=== PATIENT | male | born 1955 | race Caucasian/White ===

== ENCOUNTER 2017-08-13 11:17 | Emergency (ER) | payer OTHER ==
--- NOTE | 2017-08-13 11:49 | ER Document Report ---
ED Medical Screen (RME) - General Chief Complaint: Abdominal Pain Stated Complaint: STOMACH PAIN Time Seen by Provider: 08/13/17 11:46 Mode of Arrival: Ambulatory Information source: Patient TRAVEL OUTSIDE OF THE [place] IN LAST 30 DAYS: No - HPI Onset: Yesterday Onset/Duration: Gradual Quality of pain: Cramping, Dull Severity: Moderate Associated Symptoms: Abdominal pain, Nausea. denies: Chills, Diarrhea, Fever, Vomiting Exacerbated by: Denies Relieved by: Denies Similar symptoms previously: Yes - W/ BOWEL OBSTRUCTION Recently seen / treated by doctor: No - Related Data Allergies/Adverse Reactions: iodipamide sodium [Iodipamide Sodium] Allergy (Severe, Verified 08/13/17 11:17) Anaphylaxis contrast dye Allergy (Severe, Uncoded 07/15/13 06:47) hives, trouble breathing, rash Past Medical History - General Information source: Patient - Past Medical History Cardiac Medical History: Reports: Hx Hypercholesterolemia Denies: Hx Coronary Artery Disease, Hx Heart Attack, Hx Hypertension Pulmonary Medical History: Denies: Hx Asthma, Hx Bronchitis, Hx COPD, Hx Pneumonia Neurological Medical History: Reports: Hx Migraine. Denies: Hx Cerebrovascular Accident, Hx Seizures GI Medical History: Reports: Other - SIGMOID PERFORATION Musculoskeltal Medical History: Reports Hx Arthritis Past Surgical History: Reports: Hx Abdominal Surgery - Exploratory laparotomy x4 , Hx Appendectomy - Incidental appendectomy during the surgery for the perforated colon in 1982, Hx Bowel Surgery - Perforated colon, Hx Orthopedic Surgery - R foot/L arm, Hx Tonsillectomy - Immunizations Hx Diphtheria, Pertussis, Tetanus Vaccination: No - unsure Review of Systems - Review of Systems Constitutional: denies: Chills, Fever Gastrointestinal: See HPI Physical Exam - Vital signs Vitals: Temp Pulse Resp BP Pulse Ox 99.0 F 72 18 137/87 H 97 08/13/17 11:23 08/13/17 11:23 08/13/17 11:23 08/13/17 11:23 08/13/17 11:23 Interpretation: Normal. No: Tachycardic, Tachypneic, Febrile - HEENT Head: Normocephalic Mucous membranes: Normal - Respiratory Respiratory status: No respiratory distress Course - Vital Signs Vital signs: Temp Pulse Resp BP Pulse Ox 99.0 F 72 18 137/87 H 97 08/13/17 11:23 08/13/17 11:23 08/13/17 11:23 08/13/17 11:23 08/13/17 11:23
[2017-08-13] MEDS ORDERED: ONDANSETRON HCL INJ/PF 4 MG/2 ML SDV IV ONE ×2 (11:52→15:17)
[2017-08-13] MEDS ORDERED: NORMAL SALINE 1000 ML 1,000 ML IV ONE ×2 (11:52→14:40)
[2017-08-13] MEDS ORDERED: HYDROMORPHONE HCL INJ/PF 2 MG/ML AMPULE IV ONE ×2 (11:52→15:17)
[2017-08-13 12:37] LABS: ABSOLUTE BASOPHILS # (AUTO) 0.1 10^3/uL (0.0-0.2); ABSOLUTE EOSINOPHILS # (AUTO) 0.1 10^3/uL (0.0-0.6); ABSOLUTE LYMPHOCYTES (AUTO) 1.5 10^3/uL (0.5-4.7); ABSOLUTE MONOCYTES (AUTO) 0.8 10^3/uL (0.1-1.4); ABSOLUTE NEUT (AUTO) 8.1 10^3/uL (1.7-8.2); BASOPHILS % (AUTO) 0.5 % (0-2); EOSINOPHILS % (AUTO) 0.5 % (0-6); HEMATOCRIT 44.5 % (37.9-51.0); HEMOGLOBIN 15.2 g/dL (13.5-17.0); HGB HCT DIFFERENCE 1.1; LYMPHOCYTES % (AUTO) 14.6 % (13-45); MEAN CORPUSCULAR HGB CONC 34.2 g/dL (32.0-36.0); MEAN CORPUSCULAR VOLUME 91 fl (80-97); MONOCYTES % (AUTO) 7.8 % (3-13); RED BLOOD COUNT 4.91 10^6/uL (4.35-5.55); RED CELL DISTRIBUTION WIDTH 13.7 % (11.5-14.0); SEGMENTED NEUTROPHILS % (AUTO) 76.6 % (42-78); WHITE BLOOD COUNT 10.5 10^3/uL (4.0-10.5)
--- NOTE | 2017-08-13 13:39 | ER Document Report ---
ED GI/ - General Mode of Arrival: Ambulatory Information source: Patient TRAVEL OUTSIDE OF THE [place] IN LAST 30 DAYS: No <NATHAN WAGNER - Last Filed: 08/13/17 13:44> <GUNNAR FERNANDEZ - Last Filed: 08/13/17 15:47> - General Chief Complaint: Abdominal Pain Stated Complaint: STOMACH PAIN Time Seen by Provider: 08/13/17 11:46 Notes: Patient is a 61 year old male that presents to the emergency department today with complaints of abdominal pain beginning early this morning. Patient has a history of SBO in May of 2015. Patient states that his symptoms today are identical to the symptoms that he had in the past with his previous SBO. Patient states he is nauseated but denies any vomiting. (NATHAN WAGNER) - Related Data Allergies/Adverse Reactions: iodipamide sodium [Iodipamide Sodium] Allergy (Severe, Verified 08/13/17 11:55) Anaphylaxis contrast dye Allergy (Severe, Uncoded 08/13/17 11:55) hives, trouble breathing, rash Home Medications: Current Home Medications Clobetasol Propionate [Clobex] 1 applic TP 08/13/17 [History] Doxycycline Hyclate [Doxycycline Hyclate] 50 mg PO 08/13/17 [History] Past Medical History - General Information source: Patient - Social History Smoking Status: Former Smoker Cigarette use (# per day): No Chew tobacco use (# tins/day): No Frequency of alcohol use: None Drug Abuse: None Lives with: Family Family History: Reviewed & Not Pertinent Patient has suicidal ideation: No Patient has homicidal ideation: No - Past Medical History Cardiac Medical History: Reports: Hx Hypercholesterolemia Neurological Medical History: Reports: Hx Migraine GI Medical History: Reports: Other - SIGMOID PERFORATION Musculoskeltal Medical History: Reports Hx Arthritis Past Surgical History: Reports: Hx Abdominal Surgery - Exploratory laparotomy x4 , Hx Appendectomy - Incidental appendectomy during the surgery for the perforated colon in 1982, Hx Bowel Surgery - Perforated colon, Hx Orthopedic Surgery - R foot/L arm, Hx Tonsillectomy - Immunizations Hx Diphtheria, Pertussis, Tetanus Vaccination: No - unsure <NATHAN WAGNER - Last Filed: 08/13/17 13:44> Review of Systems - Review of Systems Constitutional: No symptoms reported EENT: No symptoms reported Cardiovascular: No symptoms reported Respiratory: No symptoms reported Gastrointestinal: See HPI, Abdominal pain, Nausea. denies: Vomiting Genitourinary: No symptoms reported Male Genitourinary: No symptoms reported Musculoskeletal: No symptoms reported Skin: No symptoms reported Hematologic/Lymphatic: No symptoms reported Neurological/Psychological: No symptoms reported -: Yes All other systems reviewed and negative <NATHAN WAGNER - Last Filed: 08/13/17 13:44> Physical Exam <NATHAN WAGNER - Last Filed: 08/13/17 13:44> <GUNNAR FERNANDEZ - Last Filed: 08/13/17 15:47> - Vital signs Vitals: Temp Pulse Resp BP Pulse Ox 99.0 F 72 18 137/87 H 97 08/13/17 11:23 08/13/17 11:23 08/13/17 11:23 08/13/17 11:23 08/13/17 11:23 - Notes Notes: Physical Exam: General: Alert, appears well. HEENT: Normocephalic. Atraumatic. PERRL. Extraocular movements intact. Oropharynx clear. Neck: Supple. Non-tender. Respiratory: No respiratory distress. Clear and equal breath sounds bilaterally. Cardiovascular: Regular rate and rhythm. Abdominal: Left lower abdomen has resonant sounds, dull throughout rest of abdomen. Left lower quadrant abdominal tenderness with palpation. No distension. Normal Bowel Sounds. Back: Non-tender. No deformity or step off. Extremities: Moves all four extremities. Upper extremities: Normal inspection. Normal ROM. Lower extremities: Normal inspection. No edema. Normal ROM. Neurological: Normal cognition. AAOx4. Normal speech. Psychological: Normal affect. Normal Mood. Skin: Warm. Dry. Normal color. (NATHAN WAGNER) Course - Laboratory Result Diagrams: 08/13/17 12:15 08/13/17 12:15 <NATHAN WAGNER - Last Filed: 08/13/17 13:44> - Laboratory Result Diagrams: 08/13/17 12:15 08/13/17 13:23 - Diagnostic Test Radiology reviewed: Image reviewed, Reports reviewed - Oral contrast a CT scan of the abdomen is unremarkable other than large amount of stool in the colon. <GUNNAR FERNANDEZ - Last Filed: 08/13/17 15:47> - Vital Signs Vital signs: Temp Pulse Resp BP Pulse Ox 99.0 F 72 18 137/87 H 97 08/13/17 11:23 08/13/17 11:23 08/13/17 11:23 08/13/17 11:23 08/13/17 11:23 - Laboratory Laboratory results interpreted by me: 08/13/17 13:23 Chloride 109 H Carbon Dioxide 20 L Total Protein 6.0 L Discharge <NATHAN WAGNER - Last Filed: 08/13/17 13:44> <GUNNAR FERNANDEZ - Last Filed: 08/13/17 15:47> - Discharge Clinical Impression: Nausea Abdominal pain Qualifiers: Abdominal location: generalized Qualified Code(s): R10.84 - Generalized abdominal pain Constipation Qualifiers: Constipation type: unspecified constipation type Qualified Code(s): K59.00 - Constipation, unspecified Condition: Stable Disposition: HOME, SELF-CARE Additional Instructions: Abdominal Pain There are many causes of abdominal pain. Pain can mean a serious problem requiring surgery (such as appendicitis). It can also be an innocent problem that goes away on its own (such as a viral infection). Often, time must pass to determine the cause of pain. The physician does not feel that hospitalization is necessary, at present. Things may change within the next 24 hours. Call the doctor or come back for re- examination if any problems occur, such as: (1) Pain that becomes more severe, steady, or becomes concentrated in one specific area. Also, pain that is more severe with movement or coughing. (2) Vomiting that persists or becomes more frequent. (3) Blood in the vomitus, urine, or bowel movements. Blood in the stool may have a tarry or black appearance. (4) Shaking chills or fever greater than 100 degrees F. (5) The abdomen becomes more distended or swollen. (6) Bowel movements cease. (7) Failure to improve as expected. Nausea or Vomiting, Nonspecific Vomiting (or nausea without vomiting) can be caused by many different problems. Of course, it can mean that something's wrong with the stomach, such as "stomach flu," ulcers, or inflammation. But it can also be a symptom of a problem that has nothing to do with the stomach or intestines. Vomiting is common with severe headaches, earaches, and tonsillitis. We see it with pneumonia or heart attacks. Drugs can cause nausea. Many abdominal problems cause vomiting; for example, gallstones, kidney stones, pancreatitis, and intestinal obstruction (blocked bowels). In most cases, curing the vomiting depends on fixing the problem that caused it. For temporary relief, we may use an anti-nausea medicine. For home use, we can prescribe suppositories, chewable pills, pills that dissolve in the mouth, or liquid anti-nausea drugs. If the vomiting seems to be caused by a problem in the stomach, acid-suppressing drugs may be prescribed as well. It's important to avoid dehydration. Sip clear liquids. Take increasing amounts of fluid over the first 24 hours. Then start small amounts of bland foods (such as dry toast, applesauce, mashed potato). Avoid aspirin, tobacco, and alcohol. Gradually resume your usual diet. If the vomiting worsens, if the problem that's making you vomit worsens, or if there's evidence of bleeding in the stomach (such as black, tarry stool, bloody or black vomit, or lightheadedness), you should return immediately. Call your doctor if you aren't improved in 24 to 36 hours. Constipation Constipation is a common problem. It is especially likely as you get older. Constipation is a common cause of abdominal pain, but sometimes causes no symptoms at all. Causes of constipation include certain medications, dehydration, diets, inactivity, and low-fiber intake. Rarely, it can be a symptom of underlying disease. The physician has evaluated you for this. Avoid constipation by eating a diet high in fiber, fruits, and vegetables. Drink plenty of liquids. Get regular exercise. If possible, avoid constipating medicines like narcotic pain medication. Some vitamin tablets can cause constipation. Stool softeners may be needed for difficult cases. An excellent stool softener is Konsyl which is available at [employer], and [facility]. Just add a teaspoon to a glass of pineapple or orange juice daily or twice a day if needed. Laxatives are useful for occasional constipation. You should use them only when necessary. Too-frequent use can make your bowels dependent on them. Some over the counter laxatives available without prescription are: Milk of Magnesia, 1-2 tablespoons twice a day Dulcolax, 5 mg pill or 10 mg suppository. Citrate of Magnesia, 4-5 ounces a day for a day or two For acute constipation, Fleet's Enemas and Dulcolax suppositories are helpful. Chronic, assisted use of laxatives or enemas is not a good idea. Your bowel may become dependant on them. You do not need to have a bowel movement every day. Many people do fine with a bowel movement every three or four days. You should call your doctor or return for re-evaluation if you pass blood in the stool, or if you develop fever or increasing abdominal pain. //////////////////////////////////////////////////////////////////////////////// //////////////////////////////////////////////////////////////////////////////// ////////////////// The CT scan of your abdomen was unremarkable other than a large fecal load in the colon. Take medication as prescribed for nausea. Drink 1 bottle of citrate of magnesia. Drink plenty of cool clear liquids throughout the day and evening. Take MiraLAX once daily. Follow-up with your doctor if not improving. RETURN TO THE EMERGENCY ROOM IF ANY NEW OR WORSENING SYMPTOMS. Prescriptions: Ondansetron [Zofran Odt 4 mg Tablet] 1 - 2 tab PO Q4H #10 tab.rapdis Referrals: VICTOR M ONEILL MD [Primary Care Provider] - Follow up as needed Scribe Attestation: 08/13/17 15:47 I personally performed the services described in the documentation, reviewed and edited the documentation which was dictated to the scribe in my presence, and it accurately records my words and actions. (GUNNAR FERNNADEZ) Scribe Documentation - Scribe Written by Scribe:: Madison Reid, 08/13/2017 1349 acting as scribe for :: Bashir <NATHAN WAGNER - Last Filed: 08/13/17 13:44>
[2017-08-13 14:01] LABS: ALANINE AMINOTRANSFERASE 41 U/L (21-72); ALBUMIN 3.7 g/dL (3.5-5.0); ALKALINE PHOSPHATASE 52 U/L (38-126); ANION GAP 13 (5-19); ASPARTATE AMINO TRANSFERASE 27 U/L (17-59); BILIRUBIN,DIRECT 0.2 mg/dL (0.0-0.4); BILIRUBIN,TOTAL 0.5 mg/dL (0.2-1.3); BLOOD UREA NITROGEN 15 mg/dL (7-20); CALCIUM 9.1 mg/dL (8.4-10.2); CARBON DIOXIDE 20 mmol/L (22-30); CHLORIDE 109 mmol/L (98-107); CREATININE RESULT 0.89 mg/dL (0.52-1.25); GLUCOSE 88 mg/dL (75-110); LIPASE 59.5 U/L (23-300); POTASSIUM 4.2 mmol/L (3.6-5.0); SODIUM 141.5 mmol/L (137-145)
[2017-08-13 15:09] LABS: APPEARANCE,URINE CLEAR; BILIRUBIN,URINE NEGATIVE (NEGATIVE); GLUCOSE, URINE NEGATIVE (NEGATIVE); KETONES,URINE NEGATIVE (NEGATIVE); LEUKOCYTE ESTERASE,URINE NEGATIVE (NEGATIVE); NITRITE,URINE NEGATIVE (NEGATIVE); PROTEIN,URINE NEGATIVE (NEGATIVE); URINE SPECIFIC GRAVITY 1.019; UROBILINOGEN,URINE NEGATIVE mg/dL (<2.0)
--- NOTE | 2017-08-13 15:27 | RADIOLOGY REPORT (SQ) ---
EXAM DESCRIPTION: CT ABD/PELVIS ORAL ONLY COMPLETED DATE/TIME: 08/13/2017 2:50 pm REASON FOR STUDY: ABD PAIN, H/O OBST COMPARISON: Abdominal films dated May [address] of the abdomen and pelvis dated June 03 TECHNIQUE: CT scan of the abdomen and pelvis performed without intravenous but with oral contrast. I mages reviewed with lung, soft tissue, and bone windows. Reconstructed coronal and sagittal MPR image s reviewed. All images stored on PACS. All CT scanners at this facility use dose modulation, iterative reconstruction, and/or weight based d osing when appropriate to reduce radiation dose to as low as reasonably achievable (ALARA). [facility]: Dose Right [facility]: CareDose [facility]: Dose Right [facility]: Teradose 4D [facility]: Smart Essential Viewing RADIATION DOSE: mGy. LIMITATIONS: None. FINDINGS: LOWER CHEST: Pleural-parenchymal changes are identified in the right lung base most consis tent with scarring which appears stable as compared to the previous study NON-CONTRASTED LIVER, SPLEEN, ADRENALS: Evaluation limited by lack of IV contrast. No identified sign ificant masses. PANCREAS: No masses. No peripancreatic inflammatory changes. GALLBLADDER: No identified stones by CT criteria. No inflammatory changes to suggest cholecystitis. RIGHT KIDNEY AND URETER: No suspicious masses. Assessment limited by lack of IV contrast. No signif icant calcifications. No hydronephrosis or hydroureter. LEFT KIDNEY AND URETER: No suspicious masses. Assessment limited by lack of IV contrast. No signifi cant calcifications. No hydronephrosis or hydroureter. AORTA AND RETROPERITONEUM: No aneurysm. No retroperitoneal masses or adenopathy. BOWEL AND PERITONEAL CAVITY: No obvious masses or inflammatory changes. No free fluid. No evidence f or bowel obstruction is identified. A moderate amount of fecal material is identified throughout the colon. There is some prominence of the distal ileum however contrast is identified within the cecal region. No obstruction is seen. APPENDIX: Status post appendectomy. PELVIS, BLADDER, AND ABDOMINAL WALL:No abnormal masses. No free fluid. Bladder normal. BONES: No significant findings. OTHER: No other significant finding. IMPRESSION: No evidence for bowel obstruction is seen. Other findings as noted above COMMENT: Quality ID # [id number]: Final reports with documentation of one or more dose reduction techniques (e.g., Automated exposure control, adjustment of the mA and/or kV according to patient size, use of iterative reconstruction technique) TECHNICAL DOCUMENTATION: JOB ID: [id number] [employer]- All Rights Reserved
[2017-08-13] MEDS ORDERED: ONDANSETRON ODT 4 MG TAB (6 TAB/DSPK) PO PRN (15:46)
[2017-08-13 16:23] VITALS: BP 130/61
== END 2017-08-13 16:29 | disposition home or self-care (01) ==
LOC: ER 11:17
DX: K59.00 Constipation, unspecified (principal); R10.84 Generalized abdominal pain; R11.0 Nausea; Z79.899 Other long term (current) drug therapy; Z87.891 Personal history of nicotine dependence
CPT/HCPCS: 96376; 99284; 96361; 96374; 96375; 36415; 83690; 85025; 80053; 81001; 74176; J1170; J2405; J7030

== ENCOUNTER 2019-11-24 00:21 | Observation (INO) | payer MEDICARE, OTHER ==
[2019-11-24] MEDS ORDERED: ASPIRIN 81 MG TABLET, CHEWABLE PO ONE (00:38)
--- NOTE | 2019-11-24 00:42 | ER Document Report ---
ED Medical Screen (RME) - General Chief Complaint: Chest Pain Stated Complaint: CHEST PAIN Time Seen by Provider: 11/24/19 00:33 Primary Care Provider: VICTOR M ONEILL MD [Primary Care Provider] - Follow up as needed TRAVEL OUTSIDE OF THE [place] IN LAST 30 DAYS: No - HPI Notes: 11/24/19 00:39 Patient is a 64-year-old male no significant past medical history presents complaining of left sternal chest pain that began around 3 PM today. The pain had been intermittent, but is becoming more frequent. Pain does not radiate. He does feel little lightheaded with this pain. He has never experienced this before. He is able to eat and drink without difficulty. He is urinating normally. He is not on any blood thinning medications. Denies any prolonged immobilization, distance travel, recent surgery/trauma, personal cancer history, hormone use, or previous DVT/PE. Denies GEORGE, fever, shortness of breath, neck pain, URI, n/v/d, Abd pain, dysuria, back pain, or rash. I have treated and performed a rapid initial assessment of this patient. A comprehensive ED assessment and evaluation of the patient, analysis of test results and completion of medical decision making process will be conducted by additional ED providers. PHYSICAL EXAMINATION: GENERAL: Well-appearing, well-nourished and in no acute distress. A&Ox4. Answers questions appropriately. LUNGS: Breath sounds clear to auscultation bilaterally and equal. No wheezes rales or rhonchi. HEART: Regular rate and rhythm without murmurs, rubs, gallops. Extremities: No cyanosis, clubbing, or edema b/l. Claribel negative bilaterally. No lower extremity asymmetry. NEUROLOGICAL: Normal speech, normal gait. PSYCH: Normal mood, normal affect. - Related Data Allergies/Adverse Reactions: iodipamide sodium [Iodipamide Sodium] Allergy (Severe, Verified 08/13/17 11:55) Anaphylaxis contrast dye Allergy (Severe, Uncoded 08/13/17 11:55) hives, trouble breathing, rash Past Medical History - Past Medical History Cardiac Medical History: Reports: Hx Hypercholesterolemia Denies: Hx Coronary Artery Disease, Hx Heart Attack, Hx Hypertension Pulmonary Medical History: Denies: Hx Asthma, Hx Bronchitis, Hx COPD, Hx Pneumonia Neurological Medical History: Reports: Hx Migraine. Denies: Hx Cerebrovascular Accident, Hx Seizures Renal/ Medical History: Denies: Hx Peritoneal Dialysis Musculoskeltal Medical History: Reports Hx Arthritis Past Surgical History: Reports: Hx Abdominal Surgery - Exploratory laparotomy x4, Hx Appendectomy - Incidental appendectomy during the surgery for the perforated colon in 1982, Hx Bowel Surgery - Perforated colon, Hx Orthopedic Surgery - R foot/L arm, Hx Tonsillectomy - Immunizations Hx Diphtheria, Pertussis, Tetanus Vaccination: No - unsure Physical Exam - Vital signs Vitals: Temp Pulse Resp BP Pulse Ox 98.4 F 54 L 18 174/85 H 96 11/24/19 00:11/24/19 00:11/24/19 00:11/24/19 00:11/24/19 00:26 Course - Vital Signs Vital signs: Temp Pulse Resp BP Pulse Ox 98.4 F 54 L 18 174/85 H 96 11/24/19 00:26 11/24/19 00:26 11/24/19 00:26 11/24/19 00:11/24/19 00:26 Doctor's Discharge - Discharge Referrals: VICTOR M ONEILL MD [Primary Care Provider] - Follow up as needed
[2019-11-24 01:25] LABS: ABSOLUTE EOSINOPHILS # (AUTO) 0.1 10^3/uL (0.0-0.6); ABSOLUTE LYMPHOCYTES (AUTO) 1.2 10^3/uL (0.5-4.7); ABSOLUTE MONOCYTES (AUTO) 0.7 10^3/uL (0.1-1.4); ABSOLUTE NEUT (AUTO) 3.7 10^3/uL (1.7-8.2); BASOPHILS % (AUTO) 0.4 % (0-2); EOSINOPHILS % (AUTO) 2.1 % (0-6); HEMOGLOBIN 14.2 g/dL (13.5-17.0); LYMPHOCYTES % (AUTO) 21.5 % (13-45); MEAN CORPUSCULAR HEMOGLOBIN 31.1 pg (27.0-33.4); MEAN CORPUSCULAR HGB CONC 33.9 g/dL (32.0-36.0); MEAN CORPUSCULAR VOLUME 92 fl (80-97); MONOCYTES % (AUTO) 11.7 % (3-13); PLATELET COUNT 180 10^3/uL (150-450); RED BLOOD COUNT 4.58 10^6/uL (4.35-5.55); RED CELL DISTRIBUTION WIDTH 13.9 % (11.5-14.0); SEGMENTED NEUTROPHILS % (AUTO) 64.3 % (42-78); TOTAL CELLS COUNTED % (AUTO) 100 %; WHITE BLOOD COUNT 5.8 10^3/uL (4.0-10.5)
--- NOTE | 2019-11-24 01:37 | RADIOLOGY REPORT (SQ) ---
EXAM DESCRIPTION: XR CHEST 2 VIEWS COMPLETED DATE/TME: 11/24/2019 00:38 CLINICAL HISTORY: 64 years Male, CP COMPARISON: 05/24/15. CT, 08/13/17. NUMBER OF VIEWS/TECHNIQUE: 1/AP FINDINGS: Small chronic lingular atelectasis or scar. Adequate lung volume, normal cardiac silhouette, and intact bony thorax. IMPRESSION: Small lingular atelectasis or scar, chronic.
[2019-11-24 01:44] LABS: ALBUMIN 4.1 g/dL (3.5-5.0); ALKALINE PHOSPHATASE 45 U/L (38-126); ANION GAP 8 (5-19); ASPARTATE AMINO TRANSFERASE 27 U/L (17-59); BILIRUBIN,TOTAL 0.3 mg/dL (0.2-1.3); BLOOD UREA NITROGEN 22 mg/dL (7-20); CALCIUM 8.9 mg/dL (8.4-10.2); CARBON DIOXIDE 24 mmol/L (22-30); CHLORIDE 107 mmol/L (98-107); GLUCOSE 90 mg/dL (75-110); POTASSIUM 4.6 mmol/L (3.6-5.0); TOTAL PROTEIN 6.2 g/dL (6.3-8.2)
[2019-11-24] MEDS ORDERED: MORPHINE SULFATE 10 MG/ML INJ IV ONE (01:51)
--- NOTE | 2019-11-24 01:51 | ER Document Report ---
ED General - General Chief Complaint: Chest Pain > 30 Stated Complaint: CHEST PAIN Time Seen by Provider: 11/24/19 00:33 Primary Care Provider: VICTOR M ONEILL MD [Primary Care Provider] - Follow up as needed Mode of Arrival: Ambulatory Information source: Patient Notes: 64-year-old man presents to the emergency department with a complaint of chest pain which began at approximately 3 PM this afternoon. He states the pain has been intermittent and increasing in severity. He rated the pain 7/10 earlier in the evening. He arrived to the emergency department received aspirin states that the pain is now down to 5/10. He denies a known history of CAD, he is not a smoker, no diabetes, and no hypertension. Denies a family history of CAD. Pain is substernal radiating into the left arm and associated with nausea. TRAVEL OUTSIDE OF THE [place] IN LAST 30 DAYS: No - Related Data Allergies/Adverse Reactions: iodipamide sodium [Iodipamide Sodium] Allergy (Severe, Verified 08/13/17 11:55) Anaphylaxis contrast dye Allergy (Severe, Uncoded 08/13/17 11:55) hives, trouble breathing, rash Home Medications: Doxycycline, Fluticasone, Pazeo, Fexofenadine, Montelukast, Clobes spray, Zolmitriptan, Simvastatin, Celecoxib, Melatonin, Past Medical History - Social History Smoking Status: Never Smoker Chew tobacco use (# tins/day): No Frequency of alcohol use: None Drug Abuse: None Family History: Reviewed & Not Pertinent Patient has suicidal ideation: No Patient has homicidal ideation: No - Past Medical History Cardiac Medical History: Reports: Hx Hypercholesterolemia Denies: Hx Coronary Artery Disease, Hx Heart Attack, Hx Hypertension Pulmonary Medical History: Denies: Hx Asthma, Hx Bronchitis, Hx COPD, Hx Pneumonia Neurological Medical History: Reports: Hx Migraine. Denies: Hx Cerebrovascular Accident, Hx Seizures Renal/ Medical History: Denies: Hx Peritoneal Dialysis Musculoskeletal Medical History: Reports Hx Arthritis Past Surgical History: Reports: Hx Abdominal Surgery - Exploratory laparotomy x4, Hx Appendectomy - Incidental appendectomy during the surgery for the per forated colon in 1982, Hx Bowel Surgery - Perforated colon, Hx Orthopedic Surgery - R foot/L arm, Hx Tonsillectomy - Immunizations Hx Diphtheria, Pertussis, Tetanus Vaccination: No - unsure Review of Systems - Review of Systems Notes: Constitutional: Negative for fever. HENT: Negative for sore throat. Eyes: Negative for visual changes. Cardiovascular: + Chest pain. Respiratory: Negative for shortness of breath. Gastrointestinal: + Nausea Genitourinary: Negative for dysuria. Musculoskeletal: Negative for back pain. Skin: Negative for rash. Neurological: Negative for headaches, weakness or numbness. 10 point ROS negative except as marked above and in HPI. Physical Exam - Vital signs Vitals: Temp Pulse Resp BP Pulse Ox 98.4 F 54 L 18 174/85 H 96 11/24/19 00:26 11/24/19 00:26 11/24/19 00:26 11/24/19 00:11/24/19 00:26 - Notes Notes: PHYSICAL EXAMINATION: Physical Exam: General: Well-nourished well-developed 64-year-old man in no acute distress HEENT: NC/AT, pupils equal round and reactive to light, MM moist,nares clear, oropharynx clear, airway patent Neck: supple, no adenopathy, no masses. Good range of motion Lungs: clear, no wheezing, no rales no rhonchi CVS: Regular rate and rhythm no murmur gallop or rub Abdomen: Soft, active, nontender, no masses, no hepatosplenomegaly Ext: No edema, clubbing or cyanosis. Neuro: Alert and responsive, moving all 4 extremities on command, cranial nerves intact, no focal findings Skin: Intact no open lesions, no rash PSYCH: Normal mood, normal affect. Course - Re-evaluation Re-evalutation: 11/24/19 05:59 Patient had an EKG which revealed bradycardia without acute ST or T wave abnormalities. He does have a 2 troponins which are negative in the emergency department. Story is compelling and given age male gender it would be prudent on a to bring him into the hospital for cardiology consultation and further stratification. The patient and his are appreciative of that plan. - Vital Signs Vital signs: Temp Pulse Resp BP Pulse Ox 98.4 F 54 L 20 118/78 96 11/24/19 00:26 11/24/19 00:26 11/24/19 03:00 11/24/19 02:46 11/24/19 03:00 - Laboratory Result Diagrams: 11/24/19 01:00 11/24/19 01:00 Laboratory results interpreted by me: 11/24/19 01:00 BUN 22 H Total Protein 6.2 L - Diagnostic Test Radiology reviewed: Image reviewed, Reports reviewed - X-ray: Small lingular atelectasis, otherwise normal. - EKG Interpretation by Me Rate: Bradycardia - Sinus bradycardia, rate 54 Discharge - Discharge Clinical Impression: Chest pain Qualifiers: Chest pain type: unspecified Qualified Code(s): R07.9 - Chest pain, unspecified Condition: Good Disposition: ADMITTED OBSERVATION Admitting Provider: Ildefonso (Hospitalist) Unit Admitted: Telemetry Referrals: VICTOR M ONEILL MD [Primary Care Provider] - Follow up as needed
[2019-11-24] MEDS: NITROGLYCERIN 0.4 MG/TAB 25 TAB/BOTTLE SL PRN ×3 (01:53→02:31)
[2019-11-24] MEDS ORDERED: NITROGLYCERIN 2% OINTMENT 1 GM PACKET TP ONE (02:42)
[2019-11-24] MEDS ORDERED: KETOROLAC TROMETHAMINE INJ/PF 30 MG/1 ML SDV IV ONE (05:26)
[2019-11-24] MEDS ORDERED: MAG HYDROX/AL HYDROX/SIMETH SUSP 30 ML UDCUP PO PRN (06:33)
[2019-11-24] MEDS ORDERED: NITROGLYCERIN 0.4 MG/TAB 25 TAB/BOTTLE SL PRN (06:33)
--- NOTE | 2019-11-24 06:44 | PDOC H&P ---
History of Present Illness Admission Date/PCP: 11/24/19 06:14 VICTOR M ONEILL MD Patient complains of: Chest pain History of Present Illness: ELVI LUNA is a 64 year old male with a past medical history of osteoarthritis, dyslipidemia and hypertension who presents 2 hours after the onset of sudden left-sided nonradiating pressure and sharp chest pain 4-5 int ensity occurring at rest associated with, palpitations, nausea without vomiting. He denies shortness of breath, cough, leg swelling. He denies previous episode, he admits alleviation by aspirin and nitroglycerin, denies exacerbating factors. Denies association with doxycycline use Past Medical History Cardiac Medical History: Reports: Hyperlipidema Denies: Coronary Artery Disease, Myocardial Infarction, Hypertension Pulmonary Medical History: Denies: Asthma, Bronchitis, Chronic Obstructive Pulmonary Disease (COPD), Pneumonia Neurological Medical History: Reports: Migraine Denies: Seizures Musculoskeltal Medical History: Reports: Arthritis Hematology: Reports: Anemia Past Surgical History Past Surgical History: Reports: Appendectomy - Incidental appendectomy during the surgery for the perforated colon in 1982, Orthopedic Surgery - R foot/L arm, Tonsillectomy Social History Information Source: Patient Smoking Status: Never Smoker Electronic Cigarette use?: No Frequency of Alcohol Use: Rare Drugs: None Hx Prescription Drug Abuse: No - Advance Directive Resuscitation Status: Full Code Family History Family History: Malignancy - Mother with breast cancer Parental Family History Reviewed: Yes Children Family History Reviewed: Yes Sibling(s) Family History Reviewed.: Yes Medication/Allergy Home Medications: Montelukast Sodium [Singulair 10 Mg Tablet] 10 mg PO QHS 07/15/13 Simvastatin [Zocor 40 mg Tablet] 40 mg PO QHS 07/15/13 Zolmitriptan [Zomig] 10 mg PO 07/15/13 Clobetasol Propionate [Clobex] 1 applic TP 08/13/17 Doxycycline Hyclate 50 mg PO 08/13/17 Ondansetron [Zofran Odt 4 mg Tablet] 1 - 2 tab PO Q4H #10 tab.rapdis 08/13/17 Allergies/Adverse Reactions: iodipamide sodium [Iodipamide Sodium] Allergy (Severe, Verified 08/13/17 11:55) Anaphylaxis contrast dye Allergy (Severe, Uncoded 08/13/17 11:55) hives, trouble breathing, rash Review of Systems Constitutional: ABSENT: chills, fever(s), headache(s), weight gain, weight loss Eyes: ABSENT: visual disturbances Ears: ABSENT: hearing changes Cardiovascular: ABSENT: chest pain, dyspnea on exertion, edema, orthropnea, p alpitations Respiratory: ABSENT: cough, hemoptysis Gastrointestinal: ABSENT: abdominal pain, constipation, diarrhea, hematemesis, hematochezia, nausea, vomiting Genitourinary: ABSENT: dysuria, hematuria Musculoskeletal: ABSENT: joint swelling Integumentary: ABSENT: rash, wounds Neurological: ABSENT: abnormal gait, abnormal speech, confusion, dizziness, focal weakness, syncope Psychiatric: ABSENT: anxiety, depression, homidical ideation, suicidal ideation Endocrine: ABSENT: cold intolerance, heat intolerance, polydipsia, polyuria Hematologic/Lymphatic: ABSENT: easy bleeding, easy bruising Physical Exam Vital Signs: Temp Pulse Resp BP Pulse Ox 98.4 F 54 L 20 118/78 96 11/24/19 00:26 11/24/19 00:26 11/24/19 03:00 11/24/19 02:46 11/24/19 03:00 Intake & Output 11/22/19 11/23/19 11/24/19 11:59 11:59 11:59 Weight 93.9 kg General appearance: PRESENT: no acute distress, well-developed, well-nourished Head exam: PRESENT: atraumatic, normocephalic Eye exam: PRESENT: conjunctiva pink, EOMI, PERRLA. ABSENT: scleral icterus Ear exam: PRESENT: normal external ear exam Mouth exam: PRESENT: moist, tongue midline Neck exam: ABSENT: carotid bruit, JVD, lymphadenopathy, thyromegaly Respiratory exam: PRESENT: clear to auscultation doretha. ABSENT: rales, rhonchi, wheezes Cardiovascular exam: PRESENT: RRR. ABSENT: diastolic murmur, rubs, systolic murmur Pulses: PRESENT: normal dorsalis pedis pul Vascular exam: PRESENT: normal capillary refill GI/Abdominal exam: PRESENT: normal bowel sounds, soft. ABSENT: distended, guarding, mass, organolmegaly, rebound, tenderness Rectal exam: PRESENT: deferred Extremities exam: PRESENT: full ROM. ABSENT: calf tenderness, clubbing, pedal edema Neurological exam: PRESENT: alert, awake, oriented to person, oriented to place, oriented to time, oriented to situation, CN II-XII grossly intact. ABSENT: motor sensory deficit Psychiatric exam: PRESENT: appropriate affect, normal mood. ABSENT: homicidal ideation, suicidal ideation Skin exam: PRESENT: dry, intact, warm. ABSENT: cyanosis, rash Results Laboratory Results: 11/24/19 01:00 11/24/19 01:00 11/24/19 11/24/19 01:00 01:00 WBC 5.8 RBC 4.58 Hgb 14.2 Hct 42.0 MCV 92 MCH 31.1 MCHC 33.9 RDW 13.9 Plt Count 180 Seg Neutrophils % 64.3 Sodium 138.9 Potassium 4.6 Chloride 107 Carbon Dioxide 24 Anion Gap 8 BUN 22 H Creatinine 0.95 Est GFR ( Amer) > 60 Glucose 90 Calcium 8.9 Total Bilirubin 0.3 AST 27 Alkaline Phosphatase 45 Total Protein 6.2 L Albumin 4.1 11/24/19 11/24/19 01:00 04:16 Troponin I < 0.012 < 0.012 Impressions: Chest X-Ray 11/24/19 00:38 IMPRESSION: Small lingular atelectasis or scar, chronic. Assessment and Plan - Diagnosis (1) Chest pain Qualifiers: Chest pain type: unspecified Qualified Code(s): R07.9 - Chest pain, unspecified Is this a current diagnosis for this admission?: Yes Plan: Atypical chest pain though the patient's pain is atypical there are multiple risk factors for coronary artery disease and subsequently will observe and evaluation of acute coronary syndrome versus coronary artery disease with anginal equivalents. Cardiac monitoring blood pressure Q6 hours ,TSH, lipid profile, serial cardiac enzymes and cardiac stress test (2) Arthritis Is this a current diagnosis for this admission?: Yes Plan: Celebrex (3) Hypercholesteremia Is this a current diagnosis for this admission?: Yes Plan: Follow-up lipid profile and TSH. - Time Time Spent with patient: 25-34 minutes - Inpatient Certification Medical Necessity: Need Close Monitoring Due to Risk of Patient Decompensation
[2019-11-24 07:44] LABS: CHOLESTEROL 136.26 mg/dL (0-200); CREATINE KINASE 102 U/L (55-170); TRIGLYCERIDES 95 mg/dL (<150)
[2019-11-24 07:58] LABS: CREATINE KINASE MB 0.91 ng/mL (<4.55)
[2019-11-24 07:59] LABS: TROPONIN I < 0.012 ng/mL
[2019-11-24 08:11] LABS: DIRECT LDL 74 mg/dL (<100)
[2019-11-24] MEDS: ACETAMINOPHEN 325 MG TABLET PO PRN ×2 (08:27→13:24)
[2019-11-24] MEDS: ATORVASTATIN CALCIUM 40 MG TABLET PO SCH ×2 (08:27→21:24)
--- NOTE | 2019-11-24 09:59 | EKG REPORT ---
SEVERITY:- NORMAL ECG - SINUS RHYTHM : Confirmed by: Adore Shook 24-Nov-2019 09:58:43
[2019-11-24] MEDS ORDERED: (PENDING PHARMACY ID) (Acetaminophen [Acetaminophen Extra Strength] 1,000 MG) PO PRN (15:15)
[2019-11-24] MEDS ORDERED: ZOLMITRIPTAN 5 MG PO PRN (15:15)
[2019-11-24] MEDS ORDERED: ACETAMINOPHEN 325 MG TABLET PO PRN (15:26)
--- NOTE | 2019-11-24 15:43 | PDOC CONSULTATION ---
Consultation-Blank Consultation: CARDIOLOGY CONSULTATION by Dr. Violet Samuel on 11/24/2019. Patient seen at 4 PM. 60 minutes spent with patient more than 50% time spent in direct patient care. HISTORY OF PRESENT ILLNESS: Patient is a 64-year-old male with known history of hyperlipidemia on simvastatin, and degenerative arthritis on Celebrex 200 mg p.o. twice daily states that while he was driving he had sudden onset of left upper chest pain. This is like a sharp pain constant. It is not relieved or aggravated by any changes in posture or or using her chest wall muscles muscles. There is no aggravation of the symptoms by movements of the shoulder. He states nothing makes it better nothing makes it worse. It is also not positional. It is not associated with shortness of breath. It does not increase with deep breath. There is no cough wheezing or shortness of breath or palpitations or diaphoresis. The patient has no shortness of breath and there is no hypoxemia. He has not had pain like this before. His serial EKGs are within normal limits. And his cardiac enzymes have been negative x4. He denies any palpitations. There is no PND orthopnea. The patient's coronary artery risk factors age and dyslipidemia. Past Medical History Cardiac Medical History: Reports: Hyperlipidema Denies: Coronary Artery Disease, Myocardial Infarction, Hypertension Pulmonary Medical History: Denies: Asthma, Bronchitis, Chronic Obstructive Pulmonary Disease (COPD), Pneumonia. There is no history of sleep apnea or history of pulmonary embolism. Neurological Medical History: Reports: Migraine Denies: Seizures Musculoskeltal Medical History: Reports: Arthritis Hematology: Reports: Anemia ENDOCRINE: There is no history of diabetes mellitus or thyroid disease. RENAL: There is no history of chronic kidney disease. There is no symptoms of hematuria pyuria or dysuria. Past Surgical History Past Surgical History: Reports: Appendectomy - Incidental appendectomy during the surgery for the perforated colon in 1982, Orthopedic Surgery - R foot/L arm, Tonsillectomy Social History Information Source: Patient Smoking Status: Never Smoker Electronic Cigarette use?: No Frequency of Alcohol Use: Rare Drugs: None Hx Prescription Drug Abuse: No - Advance Directive Resuscitation Status: Full Code. The patient's is his surrogate healthcare decision maker. Family History Family History: Malignancy - Mother with breast cancer Parental Family History Reviewed: Yes Children Family History Reviewed: Yes Sibling(s) Family History Reviewed.: Yes Medication/Allergy Home Medications: Montelukast Sodium [Singulair 10 Mg Tablet] 10 mg PO QHS 07/15/13 Simvastatin [Zocor 40 mg Tablet] 40 mg PO QHS 07/15/13 Zolmitriptan [Zomig] 10 mg PO 07/15/13 Clobetasol Propionate [Clobex] 1 applic TP 08/13/17 Doxycycline Hyclate 50 mg PO 08/13/17 Ondansetron [Zofran Odt 4 mg Tablet] 1 - 2 tab PO Q4H #10 tab.rapdis 08/13/17 Allergies/Adverse Reactions: iodipamide sodium [Iodipamide Sodium] Allergy (Severe, Verified 08/13/17 11:55) Anaphylaxis contrast dye Allergy (Severe, Uncoded 08/13/17 11:55) hives, trouble breathing, rash Review of Systems Constitutional: ABSENT: chills, fever(s), headache(s), weight gain, weight loss Eyes: ABSENT: visual disturbances Ears: ABSENT: hearing changes Cardiovascular: ABSENT: chest pain, dyspnea on exertion, edema, orthropnea, palpitations Respiratory: ABSENT: cough, hemoptysis Gastrointestinal: ABSENT: abdominal pain, constipation, diarrhea, hematemesis, hematochezia, nausea, vomiting Genitourinary: ABSENT: dysuria, hematuria Musculoskeletal: ABSENT: joint swelling Integumentary: ABSENT: rash, wounds Neurological: ABSENT: abnormal gait, abnormal speech, confusion, dizziness, focal weakness, syncope Psychiatric: ABSENT: anxiety, depression, homidical ideation, suicidal ideation Endocrine: ABSENT: cold intolerance, heat intolerance, polydipsia, polyuria Hematologic/Lymphatic: ABSENT: easy bleeding, easy bruising. Rest of the review of all symptoms are negative and not pertinent to the patient's current complaints of chest pain. Current Medications Generic Name Dose Route Start Last Admin Trade Name Freq PRN Reason Stop Dose Admin Acetaminophen 975 mg 11/24/19 15:26 Tylenol 325 Mg Tablet PO 12/24/19 15:25 Q6HP PRN FOR PAIN Al Hydrox/Mg Hydrox/Simethicone 30 ml 11/24/19 06:33 Maalox Plus Susp 30 Udcup PO 12/24/19 06:32 Q4HP PRN HEARTBURN Atorvastatin Calcium 40 mg 11/24/19 06:45 11/24/19 21:24 Lipitor 40 Mg Tablet PO 12/24/19 06:44 40 mg QHS MIGUEL A Administration Doxycycline Hyclate 50 mg 11/24/19 18:00 11/24/19 17:05 Vibramycin 100 Mg Tablet PO 12/01/19 17:59 50 mg QPM MIGUEL A Administration Fluticasone Propionate 2 spray 11/25/19 08:00 Flonase Nasal [place] 50 Mcg/[place] 16 Gm NASL 12/25/19 07:59 QAM MIGUEL A Loratadine 10 mg 11/24/19 18:00 11/24/19 17:04 Claritin 10 Mg Tablet PO 12/24/19 17:59 10 mg QPM MIGUEL A Administration Melatonin 3 mg 11/24/19 22:00 11/24/19 21:24 Melatonin 3 Mg Tablet PO 12/24/19 21:59 3 mg QHS MIGUEL A Administration Montelukast Sodium 10 mg 11/24/19 18:00 11/24/19 17:04 Singulair 10 Mg Tablet PO 12/24/19 17:59 10 mg QPM MIGUEL A Administration Multivitamins 1 tab 11/25/19 08:00 Tab-A-Bekah (Multiple Vitamin) Tablet PO 12/25/19 07:59 QAM MIGUEL A Nitroglycerin 1 tab 11/24/19 06:33 Nitrostat 0.4 Mg (1/150 Gr) Tabs 25/Bottle SL Q5MP PRN FOR CHEST PAIN Patient Own Medication 1 spray 11/24/19 18:00 Clobetasol Propionate [Clobex] TP 12/24/19 17:59 BID MIGUEL A Patient Own Medication 5 mg 11/24/19 15:15 Zolmitriptan [Zomig] PO DAILYP PRN MIGRAINE Patient Own Medication 1 drop 11/24/19 18:00 Olopatadine Hcl [Pazeo] OU 12/24/19 17:59 QPM MIGUEL A Sodium Chloride 2.5 ml 11/24/19 14:00 11/24/19 21:26 Saline Flush 2.5 Ml Monoject Prefil Syrin IV 12/24/19 13:59 2.5 ml Q8 MIGUEL A Administration Discontinued Medications Generic Name Dose Route Start Last Admin Trade Name Freq PRN Reason Stop Dose Admin Acetaminophen 650 mg 11/24/19 06:33 11/24/19 13:24 Tylenol 325 Mg Tablet PO 12/24/19 06:32 650 mg Q4HP PRN Administration FOR HEADACHE Aspirin 324 mg 11/24/19 00:38 11/24/19 00:42 Aspirin 81 Mg Chewable Tablet PO 11/24/19 00:39 324 mg NOW ONE Administration Ketorolac Tromethamine 30 mg 11/24/19 05:26 11/24/19 05:33 Toradol Inj/Pf 30 Mg/1 Ml Sdv IV 11/24/19 05:27 30 mg NOW ONE Administration Morphine Sulfate 2 mg 11/24/19 01:51 11/24/19 03:01 Morphine 10 Mg/Ml Inj IV 11/24/19 01:52 2 mg NOW ONE Administration Nitroglycerin 1 tab 11/24/19 01:50 11/24/19 02:31 Nitrostat 0.4 Mg (1/150 Gr) Tabs 25/Bottle SL 12/24/19 01:49 1 tab Q5MP PRN Administration FOR CHEST PAIN Nitroglycerin 1 gm 11/24/19 02:42 11/24/19 03:00 Nitrol 2% Ointment 1gm Packet TP 11/24/19 02:43 1 gm NOW ONE Administration Sumatriptan Succinate 100 mg 11/24/19 16:42 11/24/19 17:04 Imitrex 100 Mg Tablet PO 11/24/19 16:43 100 mg NOW ONE Administration PHYSICAL EXAMINATION: The patient is well-built and well-nourished. At present in no acute distress. Selected Entries 11/24/19 15:00 Temperature 97.4 F Temperature Oral Source Pulse Rate 48 L Respiratory 16 Rate Blood Pressure 106/57 L [Right Upper Arm] Blood Pressure 73 Mean [Right Upper Arm] Blood Pressure Supine Position [Right Upper Arm] O2 Sat by Pulse 97 Oximetry Oxygen Delivery Room Air Method ( includes room air) HEAD: Head is atraumatic normocephalic. Eyes: Pupils are equal round regular reactive light accommodation extraocular movements are normal there is no congenital pallor there is no scleral icterus. Ears: External auditory canals are clear, there are no lesions of the pinna. Nose: No deviated nasal septum and no inflammation of the nasal mucous membrane. Mouth: Mucous membranes of mouth are moist tongue is moist there is no ulcers there is no bleeding from the gums. Throat: There is no redness of the oropharynx there is no exudates. Skin: There is no petechia or ecchymosis there is no skin lesions or skin rashes. Neck: Neck is supple there is no JVD carotids equal there is no bruit there is no lymphadenopathy there is no neck stiffness. There is no goiter trachea central lungs: Lungs are clear to auscultation percussion there is no accessory muscles of respiration in use. There is no rhonchi rales or wheezing. There is no chest wall tenderness. HEART: S1-S2 is heard there is no S3 gallop there is no S4 gallop S1 is of normal intensity. There is no rub. There is systolic murmur in the left sternal border and apex without radiation. Abdomen: Abdomen is soft nontender there is no paraspinal megaly bowel sounds well heard there is no tender areas of masses. There is no rebound guarding or rigidity. Extremities: Femorals are well felt there is no femoral bruits neck pulses are well felt there is no pedal edema there is no DVT or cellulitis there is no cyanosis or clubbing there is no DVT or cellulitis. There is no calf tenderness. PET NUTRITION SPECIALIST: The patient is awake alert oriented 3 with no focal deficits. Psychiatric: The patient judgment and insight are intact and her affect is normal. EKG #1: Is is within normal limits. The patient second EKG shows sinus bradycardia still within normal limits. Labs- Entire Visit 11/24/19 11/24/19 11/24/19 01:00 01:00 01:00 WBC 5.8 RBC 4.58 Hgb 14.2 Hct 42.0 MCV 92 MCH 31.1 MCHC 33.9 RDW 13.9 Plt Count 180 Lymph % (Auto) 21.5 [place] % (Auto) 11.7 Eos % (Auto) 2.1 Baso % (Auto) 0.4 Absolute Neuts (auto) 3.7 Absolute Lymphs (auto) 1.2 Absolute Monos (auto) 0.7 Absolute Eos (auto) 0.1 Absolute Basos (auto) 0.0 Seg Neutrophils % 64.3 ESR Sodium 138.9 Potassium 4.6 Chloride 107 Carbon Dioxide 24 Anion Gap 8 BUN 22 H Creatinine 0.95 Est GFR ( Amer) > 60 Est GFR (MDRD) Non-Af > 60 Glucose 90 Calcium 8.9 Total Bilirubin 0.3 Direct Bilirubin 0.0 Neonat Total Bilirubin Not Reportable Neonat Direct Bilirubin Not Reportable Neonat Indirect Bili Not Reportable AST 27 ALT 18 Alkaline Phosphatase 45 Creatine Kinase CK-MB (CK-2) Troponin I < 0.012 Total Protein 6.2 L Albumin 4.1 Triglycerides Cholesterol LDL Cholesterol Direct VLDL Cholesterol HDL Cholesterol TSH 11/24/19 11/24/19 11/24/19 01:00 04:16 07:14 WBC RBC Hgb Hct MCV MCH MCHC RDW Plt Count Lymph % (Auto) [place] % (Auto) Eos % (Auto) Baso % (Auto) Absolute Neuts (auto) Absolute Lymphs (auto) Absolute Monos (auto) Absolute Eos (auto) Absolute Basos (auto) Seg Neutrophils % ESR Sodium Potassium Chloride Carbon Dioxide Anion Gap BUN Creatinine Est GFR ( Amer) Est GFR (MDRD) Non-Af Glucose Calcium Total Bilirubin Direct Bilirubin Neonat Total Bilirubin Neonat Direct Bilirubin Neonat Indirect Bili AST ALT Alkaline Phosphatase Creatine Kinase 102 CK-MB (CK-2) Troponin I < 0.012 Total Protein Albumin Triglycerides 95 Cholesterol 136.26 LDL Cholesterol Direct 74 VLDL Cholesterol 19.0 HDL Cholesterol 50 TSH 4.58 11/24/19 11/24/19 11/24/19 07:14 10:46 16:25 WBC RBC Hgb Hct MCV MCH MCHC RDW Plt Count Lymph % (Auto) [place] % (Auto) Eos % (Auto) Baso % (Auto) Absolute Neuts (auto) Absolute Lymphs (auto) Absolute Monos (auto) Absolute Eos (auto) Absolute Basos (auto) Seg Neutrophils % ESR 20 Sodium Potassium Chloride Carbon Dioxide Anion Gap BUN Creatinine Est GFR ( Amer) Est GFR (MDRD) Non-Af Glucose Calcium Total Bilirubin Direct Bilirubin Neonat Total Bilirubin Neonat Direct Bilirubin Neonat Indirect Bili AST ALT Alkaline Phosphatase Creatine Kinase CK-MB (CK-2) 0.91 Troponin I < 0.012 < 0.012 Total Protein Albumin Triglycerides Cholesterol LDL Cholesterol Direct VLDL Cholesterol HDL Cholesterol TSH Chest X-Ray 11/24/19 00:38 IMPRESSION: Small lingular atelectasis or scar, chronic. IMPRESSION/RECOMMENDATION: 1. Chest pain. Etiology clear but definitely noncardiac. So far the EKG is normal and the patient troponins are negative serially x4. But the patient does have risk factors for coronary artery disease namely age and dyslipidemia. Hence will get a exercise treadmill Cardiolite stress test tomorrow. If the patient's heart rate does not come up out of the patient is unable to exercise due to arthritis then will converted to a IV Lexiscan Cardiolite stress test. 2. Systolic murmur: Later we will get a stress test to assess the etiology of the systolic murmur most likely this is mitral regurgitation. 3. Hyperlipidemia: Continue statin. On current dose of simvastatin which he takes at home is LDL HDL and triglyceride levels are excellent. 4. Degenerative arthritis. Patient has been cautioned not to use Celebrex regularly, since it can affect kidneys and also cause heart failure. MEDICATIONS reviewed. Medical management and management plan discussed with attending physician on the case. Discussed with the patient and patient's also. Medical decision making is of high complexity. 60 minutes spent with patient more than 50% of time spent in direct patient care. Will follow.
[2019-11-24] MEDS ORDERED: SUMATRIPTAN SUCCINATE 100 MG TABLET PO ONE (16:42)
[2019-11-24] MEDS ORDERED: CLOBETASOL PROPIONATE TP SCH (18:00)
[2019-11-24] MEDS ORDERED: (PENDING PHARMACY ID) (Fexofenadine Hcl [Allegra Allergy] 180 MG) PO SCH (18:00)
[2019-11-24] MEDS ORDERED: DOXYCYCLINE HYCLATE 100 MG TABLET PO SCH (18:00)
[2019-11-24] MEDS ORDERED: (PENDING PHARMACY ID) (Olopatadine Hcl [Pazeo] 1 DROP) OU SCH (18:00)
[2019-11-24] MEDS ORDERED: MONTELUKAST SODIUM 10 MG TABLET PO SCH (18:00)
[2019-11-24] MEDS ORDERED: LORATADINE 10 MG TABLET PO SCH (18:00)
[2019-11-24] MEDS ORDERED: (PENDING PHARMACY ID) (Doxycycline Hyclate [Doxycycline Hyclate] 50 MG) PO SCH (18:00)
--- NOTE | 2019-11-24 19:02 | EKG REPORT ---
SEVERITY:- OTHERWISE NORMAL ECG - SINUS BRADYCARDIA : Confirmed by: Adore Shook 24-Nov-2019 19:01:43
[2019-11-24] MEDS ORDERED: MELATONIN 3 MG TABLET PO SCH (22:00)
[2019-11-25 07:40] VITALS: BP 104/65
[2019-11-25] MEDS ORDERED: MULTIVITAMIN TABLET PO SCH (08:00)
[2019-11-25] MEDS ORDERED: FLUTICASONE NASAL SPRAY 50 MCG/SPRY 120 SPRAY/16 GM NASL SCH (08:00)
--- NOTE | 2019-11-25 14:19 | PDOC DISCHARGE SUMMARY ---
Impression - Admit/DC Date/PCP Admission Date/Primary Care Provider: 11/24/19 06:14 VICTOR M ONEILL MD Discharge Date: 11/25/19 - Discharge Diagnosis (1) Chest pain Is this a current diagnosis for this admission?: Yes - Assessment Summary: (1) Chest pain Qualifiers: Chest pain type: unspecified Qualified Code(s): R07.9 - Chest pain, unspecified Is this a current diagnosis for this admission?: Yes Plan: Atypical chest pain though the patient's pain is atypical there are multiple risk factors for coronary artery disease and subsequently will observe and evaluation of acute coronary syndrome versus coronary artery disease with anginal equivalents. Cardiac monitoring blood pressure Q6 hours ,TSH, lipid profile, serial cardiac enzymes and cardiac stress test 11/25/2019 Cardiolite stress test was done today negative for myocardial ischemia. Consultation with cardiology was done. (2) Arthritis Is this a current diagnosis for this admission?: Yes Plan: Celebrex (3) Hypercholesteremia Is this a current diagnosis for this admission?: Yes Plan: Follow-up lipid profile and TSH. - Additional Information Resuscitation Status: Full Code Discharge Diet: Cardiac Discharge Activity: Activity As Tolerated Referrals: MARNI SHAH MD [ACTIVE STAFF] - 12/06/19 1:00 pm Home Medications: Montelukast Sodium [Singulair 10 mg Tablet] 10 mg PO QPM 07/15/13 Simvastatin [Zocor 40 mg Tablet] 40 mg PO QPM 07/15/13 Zolmitriptan [Zomig] 5 mg PO DAILYP PRN 07/15/13 Clobetasol Propionate [Clobex] 1 spray TP BID 08/13/17 Celecoxib [Celebrex 200 mg Capsule] 200 mg PO Q12 11/24/19 Fexofenadine HCl [Iliana Allergy] 180 mg PO QPM 11/24/19 Fluticasone Propionate [Flonase Nasal [place] 50 Mcg/[place] 16 gm] 2 spray NASL QAM 11/24/19 Melatonin [Melatonin 3 mg Tablet] 3 mg PO QHS 11/24/19 Multivitamin [Multiple Vitamins] 1 tab PO QAM 11/24/19 Olopatadine HCl [Pazeo] 1 drop OU QPM 11/24/19 History of Present Illiness History of Present Illness: ELVI LUNA is a 64 year old male 64 year old male with a past medical history of osteoarthritis, dyslipidemia and hypertension who presents 2 hours after the onset of sudden left-sided nonradiating pressure and sharp chest pain 4-5 intensity occurring at rest associated with, palpitations, nausea without vomiting. He denies shortness of breath, cough, leg swelling. He denies previous episode, he admits alleviation by aspirin and nitroglycerin, denies exacerbating factors. Denies association with doxycycline use Hospital Course Hospital Course: 64 year old male with a past medical history of osteoarthritis, dyslipidemia and hypertension who presents 2 hours after the onset of sudden left-sided nonradiating pressure and sharp chest pain 4-5 intensity occurring at rest associated with, palpitations, nausea without vomiting. He denies shortness of breath, cough, leg swelling. He denies previous episode, he admits alleviation by aspirin and nitroglycerin, denies exacerbating factors. Denies association with doxycycline use 11/25/[id number]-old male admitted for chest pain stress test came back negative. Patient is chest pain-free and is going home today. Physical Exam Vital Signs: Temp Pulse Resp BP Pulse Ox 98.6 F 49 L 18 104/65 95 11/25/19 12:50 11/25/19 12:50 11/25/19 12:50 11/25/19 12:50 11/25/19 12:50 Intake & Output 11/24/19 11/25/19 11/26/19 06:59 06:59 06:59 Intake Total 2430 Balance 2430 Weight 93.9 kg 97.8 kg General appearance: PRESENT: no acute distress, well-developed Head exam: PRESENT: atraumatic Eye exam: PRESENT: PERRLA Mouth exam: PRESENT: dry mucosa Neck exam: ABSENT: carotid bruit, JVD, lymphadenopathy, thyromegaly Respiratory exam: PRESENT: decreased breath sounds Cardiovascular exam: PRESENT: RRR. ABSENT: diastolic murmur, rubs, systolic murmur GI/Abdominal exam: PRESENT: normal bowel sounds, soft. ABSENT: distended, guarding, mass, organolmegaly, rebound, tenderness Rectal exam: PRESENT: deferred Extremities exam: PRESENT: full ROM. ABSENT: calf tenderness, clubbing, pedal edema Neurological exam: PRESENT: alert, awake, oriented to person, oriented to place, oriented to time, oriented to situation, CN II-XII grossly intact. ABSENT: motor sensory deficit Psychiatric exam: PRESENT: appropriate affect, normal mood. ABSENT: homicidal ideation, suicidal ideation Results Laboratory Results: WBC 5.8 10^3/uL (4.0-10.5) 11/24/19 01:00 RBC 4.58 10^6/uL (4.35-5.55) 11/24/19 01:00 Hgb 14.2 g/dL (13.5-17.0) 11/24/19 01:00 Hct 42.0 % (37.9-51.0) 11/24/19 01:00 MCV 92 fl (80-97) 11/24/19 01:00 MCH 31.1 pg (27.0-33.4) 11/24/19 01:00 MCHC 33.9 g/dL (32.0-36.0) 11/24/19 01:00 RDW 13.9 % (11.5-14.0) 11/24/19 01:00 Plt Count 180 10^3/uL (150-450) 11/24/19 01:00 Lymph % (Auto) 21.5 % (13-45) 11/24/19 01:00 [place] % (Auto) 11.7 % (3-13) 11/24/19 01:00 Eos % (Auto) 2.1 % (0-6) 11/24/19 01:00 Baso % (Auto) 0.4 % (0-2) 11/24/19 01:00 Absolute Neuts (auto) 3.7 10^3/uL (1.7-8.2) 11/24/19 01:00 Absolute Lymphs (auto) 1.2 10^3/uL (0.5-4.7) 11/24/19 01:00 Absolute Monos (auto) 0.7 10^3/uL (0.1-1.4) 11/24/19 01:00 Absolute Eos (auto) 0.1 10^3/uL (0.0-0.6) 11/24/19 01:00 Absolute Basos (auto) 0.0 10^3/uL (0.0-0.2) 11/24/19 01:00 Seg Neutrophils % 64.3 % (42-78) 11/24/19 01:00 ESR 20 mm/hr (0-20) 11/24/19 16:25 Sodium 138.9 mmol/L (137-145) 11/24/19 01:00 Potassium 4.6 mmol/L (3.6-5.0) 11/24/19 01:00 Chloride 107 mmol/L (98-107) 11/24/19 01:00 Carbon Dioxide 24 mmol/L (22-30) 11/24/19 01:00 Anion Gap 8 (5-19) 11/24/19 01:00 BUN 22 mg/dL (7-20) H 11/24/19 01:00 Creatinine 0.95 mg/dL (0.52-1.25) 11/24/19 01:00 Est GFR ( Amer) > 60 (>60) 11/24/19 01:00 Est GFR (MDRD) Non-Af > 60 (>60) 11/24/19 01:00 Glucose 90 mg/dL (75-110) 11/24/19 01:00 Calcium 8.9 mg/dL (8.4-10.2) 11/24/19 01:00 Total Bilirubin 0.3 mg/dL (0.2-1.3) 11/24/19 01:00 Direct Bilirubin 0.0 mg/dL (0.0-0.4) 11/24/19 01:00 Neonat Total Bilirubin Not Reportable 11/24/19 01:00 Neonat Direct Bilirubin Not Reportable 11/24/19 01:00 Neonat Indirect Bili Not Reportable 11/24/19 01:00 AST 27 U/L (17-59) 11/24/19 01:00 ALT 18 U/L (<50) 11/24/19 01:00 Alkaline Phosphatase 45 U/L (38-126) 11/24/19 01:00 Creatine Kinase 102 U/L (55-170) 11/24/19 07:14 CK-MB (CK-2) 0.91 ng/mL (<4.55) 11/24/19 07:14 Troponin I < 0.012 ng/mL 11/24/19 10:46 Total Protein 6.2 g/dL (6.3-8.2) L 11/24/19 01:00 Albumin 4.1 g/dL (3.5-5.0) 11/24/19 01:00 Triglycerides 95 mg/dL (<150) 11/24/19 07:14 Cholesterol 136.26 mg/dL (0-200) 11/24/19 07:14 LDL Cholesterol Direct 74 mg/dL (<100) 11/24/19 07:14 VLDL Cholesterol 19.0 mg/dL (10-31) 11/24/19 07:14 HDL Cholesterol 50 mg/dL (>40) 11/24/19 07:14 TSH 4.58 uIU/mL (0.47-4.68) 11/24/19 01:00 11/24/19 11/24/19 11/24/19 01:00 04:16 07:14 CK-MB (CK-2) 0.91 Troponin I < 0.012 < 0.012 < 0.012 11/24/19 10:46 CK-MB (CK-2) Troponin I < 0.012 Impressions: Chest X-Ray 11/24/19 00:38 IMPRESSION: Small lingular atelectasis or scar, chronic. Plan Time Spent: Greater than 30 Minutes Stroke Is this a Stroke Patient?: No Acute Heart Failure - Is this a Heart Failure Patient?: No
--- NOTE | 2019-11-25 17:48 | Progress Note ---
Provider Note Provider Note: CARDIOLOGY PROGRESS NOTE by Dr. Violet Samuel on 11/25/2019. OBJECTIVE: The patient has no further chest pain or discomfort. There is no shortness of breath. There is no PND orthopnea or leg edema. There is no palpitations, near-syncope or syncope. There is no TIA CVA symptoms. There is no arrhythmia seen on the monitor. The patient underwent an uneventful exercise treadmill stress Cardiolite with a good level of exercise capacity. See results below PHYSICAL EXAMINATION: The patient is well-built and well-nourished in no acute distress. Selected Entries 11/25/19 12:50 Temperature 98.6 F Pulse Rate 49 L Respiratory 18 Rate Blood Pressure 104/65 [Right Upper Arm] O2 Sat by Pulse 95 Oximetry Pain Level Denies HEAD: Head is atraumatic normocephalic. Eyes: Pupils are equal round regular reactive light accommodation extraocular movements are normal there is no congenital pallor there is no scleral icterus. Ears: External auditory canals are clear, there are no lesions of the pinna. Nose: No deviated nasal septum and no inflammation of the nasal mucous membrane. Mouth: Mucous membranes of mouth are moist tongue is moist there is no ulcers there is no bleeding from the gums. Throat: There is no redness of the oropharynx there is no exudates. Sk in: There is no petechia or ecchymosis there is no skin lesions or skin rashes. Neck: Neck is supple there is no JVD carotids equal there is no bruit there is no lymphadenopathy there is no neck stiffness. There is no goiter trachea central lungs: Lungs are clear to auscultation percussion there is no accessory muscles of respiration in use. There is no rhonchi rales or wheezing. There is no chest wall tenderness. HEART: S1-S2 is heard there is no S3 gallop there is no S4 gallop S1 is of normal intensity. There is no rub. There is systolic murmur in the left sternal border and apex without radiation. Abdomen: Abdomen is soft nontender there is no paraspinal megaly bowel sounds well heard there is no tender areas of masses. There is no rebound guarding or rigidity. Extremities: Femorals are well felt there is no femoral bruits neck pulses are well felt there is no pedal edema there is no DVT or cellulitis there is no cyanosis or clubbing there is no DVT or cellulitis. There is no calf tenderness. [employer] DIRECTOR: The patient is awake alert oriented 3 with no focal deficits. Psychiatric: The patient judgment and insight are intact and her affect is normal. Labs- Entire Visit 11/24/19 11/24/19 11/24/19 01:00 01:00 01:00 WBC 5.8 RBC 4.58 Hgb 14.2 Hct 42.0 MCV 92 MCH 31.1 MCHC 33.9 RDW 13.9 Plt Count 180 Lymph % (Auto) 21.5 [place] % (Auto) 11.7 Eos % (Auto) 2.1 Baso % (Auto) 0.4 Absolute Neuts (auto) 3.7 Absolute Lymphs (auto) 1.2 Absolute Monos (auto) 0.7 Absolute Eos (auto) 0.1 Absolute Basos (auto) 0.0 Seg Neutrophils % 64.3 ESR Sodium 138.9 Potassium 4.6 Chloride 107 Carbon Dioxide 24 Anion Gap 8 BUN 22 H Creatinine 0.95 Est GFR ( Amer) > 60 Est GFR (MDRD) Non-Af > 60 Glucose 90 Calcium 8.9 Total Bilirubin 0.3 Direct Bilirubin 0.0 Neonat Total Bilirubin Not Reportable Neonat Direct Bilirubin Not Reportable Neonat Indirect Bili Not Reportable AST 27 ALT 18 Alkaline Phosphatase 45 Creatine Kinase CK-MB (CK-2) Troponin I < 0.012 Total Protein 6.2 L Albumin 4.1 Triglycerides Cholesterol LDL Cholesterol Direct VLDL Cholesterol HDL Cholesterol TSH 11/24/19 11/24/19 11/24/19 01:00 04:16 07:14 WBC RBC Hgb Hct MCV MCH MCHC RDW Plt Count Lymph % (Auto) [place] % (Auto) Eos % (Auto) Baso % (Auto) Absolute Neuts (auto) Absolute Lymphs (auto) Absolute Monos (auto) Absolute Eos (auto) Absolute Basos (auto) Seg Neutrophils % ESR Sodium Potassium Chloride Carbon Dioxide Anion Gap BUN Creatinine Est GFR ( Amer) Est GFR (MDRD) Non-Af Glucose Calcium Total Bilirubin Direct Bilirubin Neonat Total Bilirubin Neonat Direct Bilirubin Neonat Indirect Bili AST ALT Alkaline Phosphatase Creatine Kinase 102 CK-MB (CK-2) Troponin I < 0.012 Total Protein Albumin Triglycerides 95 Cholesterol 136.26 LDL Cholesterol Direct 74 VLDL Cholesterol 19.0 HDL Cholesterol 50 TSH 4.58 11/24/19 11/24/19 11/24/19 07:14 10:46 16:25 WBC RBC Hgb Hct MCV MCH MCHC RDW Plt Count Lymph % (Auto) [place] % (Auto) Eos % (Auto) Baso % (Auto) Absolute Neuts (auto) Absolute Lymphs (auto) Absolute Monos (auto) Absolute Eos (auto) Absolute Basos (auto) Seg Neutrophils % ESR 20 Sodium Potassium Chloride Carbon Dioxide Anion Gap BUN Creatinine Est GFR ( Amer) Est GFR (MDRD) Non-Af Glucose Calcium Total Bilirubin Direct Bilirubin Neonat Total Bilirubin Neonat Direct Bilirubin Neonat Indirect Bili AST ALT Alkaline Phosphatase Creatine Kinase CK-MB (CK-2) 0.91 Troponin I < 0.012 < 0.012 Total Protein Albumin Triglycerides Cholesterol LDL Cholesterol Direct VLDL Cholesterol HDL Cholesterol TSH Chest X-Ray 11/24/19 00:38 IMPRESSION: Small lingular atelectasis or scar, chronic. Exercise treadmill Cardiolite stress test: 1. No clinical symptoms of exercise-induced myocardial ischemia at a peak heart rate of 148 beats per minute, patient having achieved 95 % of maximum predicted heart rate for age, at a workload of 10 METS. 2. No EKG evidence of exercise-induced myocardial ischemia. 3. No arrhythmias seen. 4. Normal blood pressure response to exercise. 5. No scintigraphic evidence of exercise-induced myocardial ischemia. 6. No scintigraphic evidence of myocardial infarction/scar. Recommendations Aggressive coronary risk factor modification, and treatment of underlying comorbidities. IMPRESSION/RECOMMENDATION: 1. Chest pain. Etiology clear but definitely noncardiac. The patient is EKG showed no acute changes, and the serial troponin were negative. Also the patient's good level of exercise treadmill stress test was negative for ischemia or scar. 2. Systolic murmur: Later we will get a stress test to assess the etiology of the systolic murmur most likely this is mitral regurgitation. 3. Hyperlipidemia: Continue statin. On current dose of simvastatin which he takes at home is LDL HDL and triglyceride levels are excellent. 4. Degenerative arthritis. Patient has been cautioned not to use Celebrex regularly, since it can affect kidneys and also cause heart failure. MEDICATIONS reviewed. Medical regimen and management plan discussed with the attending provider on the case. Discussed stress test findings with the attending provider. Discussed stress test findings with the patient. Medical decision making is of moderate complexity. 40 minutes spent on this patient more than 50% time spent in direct patient care. Cardiac ray the patient is stable to be discharged. Will follow the patient up in the office. Will sign off. The patient was given my cell phone number to call me if he should have any problems or questions.
[2019-11-25] MEDS ORDERED: SIMVASTATIN 40 MG TABLET PO SCH (18:00)
--- NOTE | 2019-11-26 15:23 | DRAGON STRESS TEST REPORT ---
Exercise EKG treadmill Cardiolite stress test using SPECT. Data procedure: 12/12/2019. ORDERING PHYSICIAN: Dr.Lakshmi Samuel.PATIENT STATUS: IN PATIENT. Indication:: CHEST PAIN. Coronary risk factors:. Age, and dyslipidemia. Significant physical findings prior to stress testing show a blood pressure of , 130/82 and a heart rate of beats per 72 minute. Auscultation of the heart shows normal S1 and S2. No S3 or S4 gallops. Systolic murmur in the left sternal border and apex. Lungs are clear to auscultation and percussion. Resting 12-lead EKG:. Sinus Rhythm. Within Normal Limits. Procedure: The patient was excised on a standard Wolf protocol. . The patient walked a total of 7 minutes and 3 seconds on this protocol and reached a peak heart rate of 148 beats per minute, which is 95 % of maximum predicted heart rate for age. This is at a workload of 10 METS. The test was stopped because of achievement of target heart rate . The patient described no symptoms of chest pain/discomfort. Exercise stress EKG: There was no EKG evidence of exercise-induced ischemia.: Arrhythmias seen: None. The blood pressure response was normal at peak exercise the blood pressure was 186/88 millimeters of Hg. The double product was 27.5 K. Summary of findings and interpretation: 1. No chest pain or chest discomfort symptoms reproduced. 2. No EKG evidence of ischemia in the form of ST segment depression. 3. Normal blood pressure response. 4. No arrhythmias seen. 5. Good exercise tolerance, good aerobic capacity. Diagnostic treadmill stress test negative for ischemia by EKG criteria. Recommendations: Correlate with nuclear Cardiolite images. Nuclear data: At rest the patient was given 14.27millicuries of technetium 99 sestamibi, and as per protocol rest none gated SPECT images were obtained. The patient was exercised on a treadmill [see exercise physiology]. One minute prior to termination of exercise, 41.4 millicuries of technetium and there sestamibi was injected intravenously. As per protocol stress gated images were obtained. Impression: Review of images show that there is contamination artifact. In spite of this all segments of the myocardium had normal perfusion at rest, and normal perfusion post exercise. All segments of the myocardium had normal motion, contraction, and thickening by gated study. T. I D. ratio was 0. 99. There is no transient ischemic dilatation of the left ventricle.. The computer read rest and stress left ventricular ejection fractions were 55 %, and 52 % respectively. Visually both the ejection fractions were normal in excess of 55%. Conclusions: 1. No clinical symptoms of exercise-induced myocardial ischemia at a peak heart rate of 148 beats per minute, patient having achieved 95 % of maximum predicted heart rate for age, at a workload of 10 METS. 2. No EKG evidence of exercise-induced myocardial ischemia. 3. No arrhythmias seen. 4. Normal blood pressure response to exercise. 5. No scintigraphic evidence of exercise-induced myocardial ischemia. 6. No scintigraphic evidence of myocardial infarction/scar. Recommendations Aggressive coronary risk factor modification, and treatment of underlying comorbidities. MTDD
== END 2019-11-25 13:50 | disposition home or self-care (01) ==
LOC: ER 00:21 → EH 06:14 → 4W 10:04
PROVIDERS: ADMIT Internal Medicine; ATTEND Internal Medicine
DX: R07.89 Other chest pain (principal); E78.00 Pure hypercholesterolemia, unspecified; M19.90 Unspecified osteoarthritis, unspecified site; I10 Essential (primary) hypertension; R00.2 Palpitations; R11.0 Nausea; R00.1 Bradycardia, unspecified; R01.1 Cardiac murmur, unspecified; Z79.899 Other long term (current) drug therapy; Z90.49 Acquired absence of other specified parts of digestive tract; Z80.3 Family history of malignant neoplasm of breast
CPT/HCPCS: 93005 ×2; 99285; 96374; 96375; 36415; 82553; 82550; 84443; 85025; 85652; 80053; 84484; 80061; 93017; 71046; 78452; 93010; G0378 ×3; A9500; A9270 ×12; J1885; J2270; J3490; Q9969